=== PATIENT | male | born 1990 | race Hispanic/Latino ===

== ENCOUNTER 2019-08-01 | Emergency (ER) | payer SELFPAY | END 2019-08-01 19:25 | disposition home or self-care (01) | DRG 951 | DX: Z20.2 Contact with and (suspected) exposure to infections with a predominantly sexual mode of transmission (principal); I10 Essential (primary) hypertension | CPT/HCPCS: J0561 ==

== ENCOUNTER 2022-01-13 18:17 | Emergency (ER) | payer SELFPAY ==
[~2022-01-13] VITALS: Ht 165.1 cm; Wt 75.0 kg
[2022-01-13 18:35] VITALS: BP 121/70
== END 2022-01-13 20:25 | disposition home or self-care (01) | DRG 950 ==
LOC: ED 18:17
DX: S61.219D Laceration without foreign body of unspecified finger without damage to nail, subsequent encounter (principal); S41.112D Laceration without foreign body of left upper arm, subsequent encounter; X99.1XXD Assault by knife, subsequent encounter